=== PATIENT | female | born 1995 | race Two or more races ===

== ENCOUNTER 2016-04-22 12:10 | Inpatient (IN) | payer MEDICAID ==
[~2016-04-22] VITALS: Ht 33 cm; Wt 0.5 kg
[2016-04-22] MEDS: LACTATED RINGER'S 1,000 ML IV SCH (17:01)
[2016-04-22] MEDS ORDERED: LACT. RINGERS/OXYTOCIN 20UNITS 1,000 ML IV SCH ×2 (17:01→20:03)
[2016-04-22] MEDS ORDERED: LIDOCAINE 2%HCL (LOCAL ANESTH.) INJ 20ML MDV IJ PRN (17:15)
[2016-04-22] MEDS ORDERED: NALBUPHINE HCL 10 MG/1ml INJECTION IV PRN (17:15)
[2016-04-22] MEDS ORDERED: PROMETHAZINE HCL 25 MG/ML 1ML IV PRN (17:15)
[2016-04-22 17:32] LABS: Basophils # (auto) 0 uL; Basophils % (auto) 0.2 % (0.0-2.0); Eosinophils # (auto) 0.1 uL; Eosinophils % (auto) 0.5 % (0.0-7.0); Hematocrit 36.9 % (36.0-46.0); Hemoglobin 12.1 g/dL (12.2-16.2); Lymphocytes # (auto) 2.4 uL; Lymphocytes % (auto) 20.3 % (10.0-50.0); Mean Corpuscular Hemoglobin 28.6 pg (28.0-32.0); Mean Corpuscular Hgb Conc. 32.7 g/dL (32.0-36.0); Mean Corpuscular Volume 87.5 fL (80.0-100.0); Mean Platelet Volume 7.5 fL (7.4-10.4); Monocytes # (auto) 0.5 uL; Monocytes % (auto) 4.6 % (0.0-12.0); Neutrophils # (auto) 8.9 uL; Neutrophils % (auto) 74.4 % (37.0-80.0); Platelet Count (auto) 373 10^3/uL (140-450); Red Cell Distribution Width 14.9 % (11.6-16.0); White Blood Cell 11.9 10^3/uL (4.4-10.8)
[2016-04-22 17:46] LABS: INR 0.96 (0.9-1.15); Partial Thromboplastin Time 28.8 sec (22.64-33.71); Prothrombin Time 9.9 sec (9.37-12.3)
[2016-04-22 17:49] LABS: Albumin 2.9 g/dL (3.4-5.0); BUN/Creatinine Ratio 22.7; Calcium 9.2 mg/dL (8.5-10.1); Potassium 3.8 mmol/L (3.5-5.1)
[2016-04-22 17:52] LABS: Bilirubin, Total 0.3 mg/dL (0.2-1.0); Total Protein 7.5 g/dL (6.4-8.2)
[2016-04-22 18:41] LABS: Urine Bilirubin Negative (Negative); Urine Color Yellow (Yellow); Urine Glucose Normal (Normal); Urine Nitrite Negative (Negative); Urine RBC 5 /hpf (0 - 4); Urine Squamous Epithelial Cell FEW /hpf (<5); Urine Urobilinogen Normal (Negative)
[2016-04-22 18:42] LABS: Urine Blood 1+ /uL (Negative); Urine Ketone 2+ (Negative)
[2016-04-22] MEDS ORDERED: ePHEDrine SULFATE 50 MG/ML AMP ONE (19:57)
[2016-04-22] MEDS ORDERED: fentaNYL CITRATE 100 MCG/2 ML VL ONE (19:57)
[2016-04-22] MEDS ORDERED: LIDOCAINE HCL 2 %PF INJ 10ML AMP IJ ONE ×2 (19:58→20:15)
[2016-04-22] MEDS ORDERED: fentaNYL W ROPIVACAINE 150 ML EPI ONE (19:58)
[2016-04-22] MEDS ORDERED: fentaNYL CITRATE 100 MCG/2 ML VL IV ONE ×2 (20:15→21:15)
[2016-04-22] MEDS ORDERED: TERBUTALINE SULFATE 1 MG/ML 1ML VIAL SC ONE (20:15)
[2016-04-22] MEDS ORDERED: NALOXONE HCL 0.4 MG/ML VIAL IV ONE ×2 (20:15→21:15)
[2016-04-22] MEDS ORDERED: fentaNYL W ROPIVACAINE 150 ML EPI SCH ×2 (20:15→21:15)
[2016-04-22] MEDS ORDERED: ePHEDrine SULFATE 50 MG/ML AMP IV ONE ×2 (20:15→21:15)
[2016-04-22] MEDS ORDERED: SODIUM CHLORIDE 0.9% 500 ML IV PRN (21:02)
[2016-04-23] VITALS (11 sets, daily range): BP systolic 91–113; BP diastolic 52–79
[2016-04-23] MEDS: LACTATED RINGER'S 1,000 ML IV SCH (01:01)
[2016-04-23] MEDS ORDERED: WITCH HAZEL-GLYCERIN PAD TOP ONE (05:20)
[2016-04-23] MEDS ORDERED: PHISODERM TOP SOLN 240ML BTL TOP ONE (05:20)
[2016-04-23] MEDS ORDERED: DERMOPLAST 60ML BOTTLE TOP ONE (05:20)
[2016-04-23] MEDS ORDERED: LACT. RINGERS/OXYTOCIN 20UNITS 1,000 ML IV ONE (05:20)
[2016-04-23] MEDS ORDERED: METHYLERGONOVINE MALEATE 0.2 MG/ML AMP IM ONE (05:21)
[2016-04-23] MEDS: ceFAZolin 1GM/50ML D5W 50 ML IV SCH ×3 (09:39→22:00)
[2016-04-23] MEDS ORDERED: fentaNYL CITRATE 100 MCG/2 ML VL ONE (12:38)
[2016-04-23] MEDS ORDERED: MORPHINE SULF(PF) 0.5MG/ML 10ML VIAL ONE (12:39)
[2016-04-23] MEDS ORDERED: OXYTOCIN 10 UNIT/ML 10ML VIAL ONE (12:41)
[2016-04-23] MEDS ORDERED: ONDANSETRON HCL 4 MG/2 ML VIAL ONE (12:42)
[2016-04-23] MEDS ORDERED: MORPHINE SULF INJ 2 MG/ML SYRINGE 1ML IV PRN (13:45)
[2016-04-23] MEDS ORDERED: ONDANSETRON HCL 4 MG/2 ML VIAL IV PRN ×2 (13:45→14:00)
[2016-04-23] MEDS ORDERED: KETOROLAC TROMETH 30 MG/ML 1ML VIAL IV PRN (13:45)
[2016-04-23] MEDS ORDERED: DEXAMETHASONE SOD PHOS 10MG/1ML VIAL INJ IV PRN (14:00)
[2016-04-23] MEDS ORDERED: ONDANSETRON HCL 4 MG/2 ML VIAL IV ONE (14:00)
[2016-04-23] MEDS ORDERED: HYDROmorphone HCL 2 MG/ML VL IV PRN ×2 (14:00)
[2016-04-23] MEDS ORDERED: diphenhdrAMINE HCL 50 MG/1 ML VL IV PRN (14:00)
[2016-04-23] MEDS ORDERED: NALOXONE HCL 0.4 MG/ML VIAL IV PRN ×2 (14:00)
[2016-04-23] MEDS: HYDROmorphone HCL 2 MG/ML VL IV PRN ×2 (16:29→21:32)
[2016-04-23] MEDS: LACT. RINGERS/OXYTOCIN 20UNITS 1,000 ML IV SCH ×2 (16:34→20:25)
[2016-04-23] MEDS: KETOROLAC TROMETH 30 MG/ML 1ML VIAL IV PRN (21:11)
[2016-04-23 21:25] LABS: Basophils # (auto) 0.1 uL; Basophils % (auto) 0.3 % (0.0-2.0); Eosinophils # (auto) 0 uL; Hematocrit 32.8 % (36.0-46.0); Hemoglobin 10.8 g/dL (12.2-16.2); Lymphocytes # (auto) 2.2 uL; Lymphocytes % (auto) 12.1 % (10.0-50.0); Mean Corpuscular Hemoglobin 28.7 pg (28.0-32.0); Mean Corpuscular Hgb Conc. 32.9 g/dL (32.0-36.0); Mean Corpuscular Volume 87.1 fL (80.0-100.0); Mean Platelet Volume 7.6 fL (7.4-10.4); Monocytes # (auto) 0.8 uL; Monocytes % (auto) 4.2 % (0.0-12.0); Neutrophils # (auto) 15.3 uL; Neutrophils % (auto) 83.4 % (37.0-80.0); Platelet Count (auto) 336 10^3/uL (140-450); Red Cell Distribution Width 14.8 % (11.6-16.0); White Blood Cell 18.3 10^3/uL (4.4-10.8)
[2016-04-24] VITALS (8 sets, daily range): BP systolic 93–110; BP diastolic 54–73
[2016-04-24] MEDS: LACTATED RINGER'S 1,000 ML IV SCH ×2 (00:12→09:01)
[2016-04-24] MEDS: HYDROmorphone HCL 2 MG/ML VL IV PRN (02:20)
[2016-04-24] MEDS: KETOROLAC TROMETH 30 MG/ML 1ML VIAL IV PRN ×2 (05:35→05:40)
[2016-04-24] MEDS: ceFAZolin 1GM/50ML D5W 50 ML IV SCH ×4 (05:35→21:49)
[2016-04-24] MEDS: LACT. RINGERS/OXYTOCIN 20UNITS 1,000 ML IV SCH ×2 (06:30→09:45)
[2016-04-24 07:35] LABS: Basophils # (auto) 0.1 uL; Basophils % (auto) 0.4 % (0.0-2.0); Eosinophils # (auto) 0 uL; Eosinophils % (auto) 0.2 % (0.0-7.0); Hematocrit 30.2 % (36.0-46.0); Hemoglobin 9.9 g/dL (12.2-16.2); Mean Corpuscular Hemoglobin 28.8 pg (28.0-32.0); Mean Corpuscular Hgb Conc. 32.8 g/dL (32.0-36.0); Mean Platelet Volume 7.7 fL (7.4-10.4); Monocytes # (auto) 0.7 uL; Monocytes % (auto) 5.1 % (0.0-12.0); Neutrophils # (auto) 11.6 uL; Neutrophils % (auto) 80.3 % (37.0-80.0); Platelet Count (auto) 290 10^3/uL (140-450); White Blood Cell 14.4 10^3/uL (4.4-10.8)
[2016-04-24] MEDS ORDERED: PRENCAP61 PO (07:58)
[2016-04-24] MEDS: HYDROcodone-ACET 5/325MG TAB PO PRN ×2 (09:30→16:32)
[2016-04-24] MEDS: FERROUS SULFATE 325 MG TAB PO SCH ×2 (09:30→21:49)
[2016-04-24] MEDS: DOCUSATE SOD 100 MG CAP PO SCH ×2 (09:30→21:49)
[2016-04-24] MEDS ORDERED: BISACODYL 10 MG RECT SUPP PR ONE (11:30)
[2016-04-24] MEDS: SIMETHICONE 80 MG CHEWABLE TABLET PO SCH ×3 (11:45→21:49)
[2016-04-24] MEDS: IBUPROFEN 800 MG TAB PO PRN (18:32)
[2016-04-25] MEDS: HYDROcodone-ACET 5/325MG TAB PO PRN ×5 (00:18→21:55)
[2016-04-25 03:10] VITALS: BP 99/65
[2016-04-25] MEDS: SIMETHICONE 80 MG CHEWABLE TABLET PO SCH ×3 (05:48→19:40)
[2016-04-25] MEDS: IBUPROFEN 800 MG TAB PO PRN ×2 (05:48→19:40)
[2016-04-25] MEDS: ceFAZolin 1GM/50ML D5W 50 ML IV SCH ×2 (05:48→14:00)
[2016-04-25 08:01] VITALS: BP 103/73
[2016-04-25] MEDS: FERROUS SULFATE 325 MG TAB PO SCH ×2 (09:32→21:55)
[2016-04-25] MEDS: DOCUSATE SOD 100 MG CAP PO SCH ×2 (09:32→21:55)
[2016-04-25 12:10] VITALS: BP 120/67
[2016-04-25 16:10] VITALS: BP 110/72
[2016-04-25 19:30] VITALS: BP 111/71
[2016-04-25 23:00] VITALS: BP 106/71
[2016-04-26 03:30] VITALS: BP 114/65
[2016-04-26] MEDS: HYDROcodone-ACET 5/325MG TAB PO PRN ×2 (03:35→07:12)
[2016-04-26] MEDS: IBUPROFEN 800 MG TAB PO PRN (05:49)
[2016-04-26] MEDS: SIMETHICONE 80 MG CHEWABLE TABLET PO SCH (05:49)
[2016-04-26 07:29] VITALS: BP 106/68
[2016-04-26] MEDS ORDERED: INFLUENZA QUAD 2016-2017 0.5 ML SYRG IM ONE (09:30)
[2016-04-26] MEDS ORDERED: TETANUS-DIPTH-ACEL PERTUSSIS 0.5ML SYRG IM ONE (09:30)
[2016-04-26] MEDS: DOCUSATE SOD 100 MG CAP PO SCH (09:53)
[2016-04-26] MEDS: FERROUS SULFATE 325 MG TAB PO SCH (09:53)
== END 2016-04-26 10:20 | disposition home or self-care (01) | DRG 540 ==
LOC: LDRP 12:10 → OBSVTOIN 12:10 → LDRP 17:05
PROVIDERS: ADMIT Specialist; ATTEND Specialist
PROC: 3E0S3CZ (ICD-10-PCS; 2016-04-22)
PROC: 00HU33Z Insertion of Infusion Device into Spinal Canal, Percutaneous Approach (ICD-10-PCS; 2016-04-22)
PROC: 10D00Z1 Extraction of Products of Conception, Low, Open Approach (ICD-10-PCS; principal; 2016-04-23 12:42)
DX: O76 Abnormality in fetal heart rate and rhythm complicating labor and delivery (principal); O48.0 Post-term pregnancy; O69.1XX0 Labor and delivery complicated by cord around neck, with compression, not applicable or unspecified; O62.2 Other uterine inertia; Z37.0 Single live birth; Z3A.40 40 weeks gestation of pregnancy; Z98.890 Other specified postprocedural states; Z23 Encounter for immunization
CPT/HCPCS: 36415; 51703; 59025; 62282; 76818; 80053; 81001; 81002; 85025; 85610; 85730; 86850; 86900; 86901; 90715; 94762; 96361; 96365; 96366; 96372; 96374; J0690; J1885; J2405; J2590; J3010

== ENCOUNTER 2016-08-02 10:28 | Emergency (ER) | payer MEDICAID ==
[~2016-08-02 10:28] MED LIST: PRENCAP61 PO
[2016-08-02 10:32] VITALS: BP 117/84
[2016-08-02] MEDS ORDERED: SODIUM CHLORIDE 0.9% 1,000 ML IVB ONE (10:42)
[2016-08-02] MEDS ORDERED: PANTOPRAZOLE SODIUM 40 MG/10 ML VIAL IV ONE (10:45)
[2016-08-02] MEDS ORDERED: HYDROmorphone HCL 2 MG/ML VL IV ONE (10:45)
[2016-08-02] MEDS ORDERED: ONDANSETRON HCL 4 MG/2 ML VIAL IV ONE (10:45)
[2016-08-02 11:03] LABS: Basophils # (auto) 0 uL; Basophils % (auto) 0.4 % (0.0-2.0); Eosinophils # (auto) 0.3 uL; Eosinophils % (auto) 3.6 % (0.0-7.0); Hematocrit 41.6 % (36.0-46.0); Hemoglobin 14.1 g/dL (12.2-16.2); Lymphocytes # (auto) 2.2 uL; Lymphocytes % (auto) 25.1 % (10.0-50.0); Mean Corpuscular Hemoglobin 28.6 pg (28.0-32.0); Mean Corpuscular Hgb Conc. 33.8 g/dL (32.0-36.0); Mean Corpuscular Volume 84.6 fL (80.0-100.0); Mean Platelet Volume 7.9 fL (7.4-10.4); Monocytes # (auto) 0.6 uL; Monocytes % (auto) 6.4 % (0.0-12.0); Neutrophils # (auto) 5.7 uL; Neutrophils % (auto) 64.5 % (37.0-80.0); Platelet Count (auto) 378 10^3/uL (140-450); Red Cell Distribution Width 14.5 % (11.6-16.0); White Blood Cell 8.8 10^3/uL (4.4-10.8)
[2016-08-02 11:16] LABS: Urine Bilirubin Negative (Negative); Urine Color Yellow (Yellow); Urine Glucose Normal (Normal); Urine Ketone Negative (Negative); Urine Mucus FEW (None Seen); Urine Nitrite Negative (Negative); Urine RBC 5 /hpf (0 - 4); Urine Squamous Epithelial Cell MOD /hpf (<5); Urine Urobilinogen Normal (Negative); Urine pH 5.5 (5.0-8.0)
[2016-08-02 11:18] LABS: Urine Blood 3+ /uL (Negative)
[2016-08-02 11:27] LABS: Bilirubin, Total 0.3 mg/dL (0.2-1.0); Calcium 9.1 mg/dL (8.5-10.1); Potassium 4.2 mmol/L (3.5-5.1); Total Protein 8.8 g/dL (6.4-8.2)
[2016-08-02] MEDS ORDERED: cefTRIAXone 1GM/50ML D5W 50 ML IV ONE (12:15)
[2016-08-02] MEDS ORDERED: HYDROcodone-ACET 5/325MG TAB PO ONE (13:30)
== END 2016-08-02 12:30 | disposition home or self-care (01) ==
LOC: ER 10:32
DX: N39.0 Urinary tract infection, site not specified (principal); F17.210 Nicotine dependence, cigarettes, uncomplicated
CPT/HCPCS: 36415; 76705; 80053; 81001; 82150; 83690; 84702; 85025; 94761; 96361; 96365; 96375; 99285; C9113; J0696; J1170; J2405; J7030

== ENCOUNTER 2017-02-26 10:48 | Emergency (ER) | payer MEDICAID ==
[~2017-02-26] VITALS: Ht 154.9 cm; Wt 87.5 kg
[2017-02-26 10:55] VITALS: BP 121/72
[2017-02-26 12:16] LABS: Basophils # (auto) 0 uL; Basophils % (auto) 0.2 % (0.0-2.0); Eosinophils # (auto) 0.2 uL; Eosinophils % (auto) 1.5 % (0.0-7.0); Hematocrit 38.5 % (36.0-46.0); Hemoglobin 13.2 g/dL (12.2-16.2); Lymphocytes # (auto) 2.4 uL; Mean Corpuscular Hemoglobin 29.9 pg (28.0-32.0); Mean Corpuscular Hgb Conc. 34.4 g/dL (32.0-36.0); Mean Corpuscular Volume 87.1 fL (80.0-100.0); Monocytes # (auto) 0.5 uL; Monocytes % (auto) 4.9 % (0.0-12.0); Neutrophils # (auto) 7.4 uL; Neutrophils % (auto) 70.4 % (37.0-80.0); Platelet Count (auto) 350 10^3/uL (140-450); Red Blood Cells 4.42 10^6/uL (4.0-5.20); Red Cell Distribution Width 13.1 % (11.8-14.3); White Blood Cell 10.5 10^3/uL (4.4-10.8)
[2017-02-26 12:40] LABS: Alanine Aminotransferase 50 U/L (13-56); Albumin 3.6 g/dL (3.4-5.0); Alkaline Phosphatase 82 U/L (45-117); Anion Gap 12 (5-15); Aspartate Aminotransferase 49 U/L (15-37); BUN/Creatinine Ratio 11.4; Bilirubin, Total 0.5 mg/dL (0.2-1.0); Blood Urea Nitrogen 5 mg/dL (7-18); Carbon Dioxide 23 mmol/L (21-32); Chloride 102 mmol/L (98-107); GFR African American 228 mL/min; GFR Non-African American 188 mL/min; Glucose 99 mg/dL (74-106); Magnesium 2.2 mg/dL (1.6-2.6); Potassium 3.9 mmol/L (3.5-5.1); Sodium 137 mmol/L (136-145); Total Protein 8.2 g/dL (6.4-8.2)
== END 2017-02-26 13:50 | disposition left against medical advice (07) ==
LOC: ER 10:48
DX: O26.891 Other specified pregnancy related conditions, first trimester (principal); R42 Dizziness and giddiness; R11.0 Nausea; Z3A.11 11 weeks gestation of pregnancy
CPT/HCPCS: 36415; 80053; 82962; 83735; 84484; 85025; 93005

== ENCOUNTER 2017-05-02 06:17 | Emergency (ER) | payer MEDICAID | END 2017-05-02 06:58 | disposition left against medical advice (07) | LOC: ER 06:22 | DX: R51 Headache (principal); R09.81 Nasal congestion; Z53.21 Procedure and treatment not carried out due to patient leaving prior to being seen by health care provider ==

== ENCOUNTER 2017-09-07 22:55 | Observation (INO) | payer MEDICAID ==
[2017-09-07] MEDS ORDERED: LACTATED RINGER'S 1,000 ML IV ONE (23:36)
[2017-09-07 23:40] LABS: Urine Bacteria MOD /hpf (None Seen); Urine Blood 3+ /uL (Negative); Urine Specific Gravity 1.009 (1.001-1.035); Urine WBC 74 /hpf (0 - 5)
[2017-09-07] MEDS ORDERED: TERBUTALINE SULFATE 1 MG/ML 1ML VIAL SC ONE (23:41)
[2017-09-07] MEDS ORDERED: TERBUTALINE SULFATE 1 MG/ML 1ML VIAL SC SCH (23:45)
[2017-09-07 23:52] LABS: Alcohol, Urine < 3.0 mg/dL (0-5); Amphetamine Screen, Urine NEGATIVE (NEGATIVE); Barbiturate Scree,Urine NEGATIVE (NEGATIVE); Benzodiazephine Screen, Urine NEGATIVE (NEGATIVE); Cannabinoid Screen, Urine NEGATIVE (NEGATIVE); Cocaine Screen, Urine NEGATIVE (NEGATIVE); Opiate Scree,Urine NEGATIVE (NEGATIVE); Phencyclidine Screen, Urine NEGATIVE (NEGATIVE)
[2017-09-08] MEDS ORDERED: ceFAZolin 1GM/100ML 200 ML IV ONE (00:06)
[2017-09-08] MEDS ORDERED: ceFAZolin 1GM 2 GM in D5W 5% 100 ML IV ONE (00:15)
[2017-09-08] MEDS ORDERED: TETRACAINE 1% INJ 2 ML VIAL IJ ONE (14:29)
[2017-09-08] MEDS ORDERED: CEPH250C PO (16:27)
== END 2017-09-08 00:55 | disposition home or self-care (01) | DRG 566 ==
LOC: LDRP 22:55
PROVIDERS: ADMIT Obstetrics & Gynecology; ATTEND Obstetrics & Gynecology
DX: O62.9 Abnormality of forces of labor, unspecified (principal); O46.90 Antepartum hemorrhage, unspecified, unspecified trimester; Z3A.00 Weeks of gestation of pregnancy not specified
CPT/HCPCS: 59025; 80307; 81001; 81002; 96365; 96366; 96372; G0378; J0690; J3105; J7060

== ENCOUNTER 2017-09-08 13:55 | Inpatient (IN) | payer MEDICAID ==
[~2017-09-08] VITALS: Ht 154.9 cm; Wt 95.3 kg
[2017-09-08] MEDS: ceFAZolin 1GM/100ML 50 ML IV SCH ×2 (08:45→12:11)
[2017-09-08] MEDS ORDERED: LACTATED RINGER'S 1,000 ML IV SCH ×2 (14:26→22:34)
[2017-09-08] MEDS ORDERED: fentaNYL CITRATE 100 MCG/2 ML VL ONE (14:52)
[2017-09-08] MEDS ORDERED: MORPHINE SULF(PF) 0.5MG/ML 10ML VIAL ONE (14:52)
[2017-09-08] MEDS ORDERED: MIDAZOLAM HCL 1MG/1ML-2 ML VIAL ONE (14:53)
[2017-09-08 14:56] LABS: Basophils # (auto) 0 uL; Basophils % (auto) 0.3 % (0.0-2.0); Eosinophils # (auto) 0 uL; Eosinophils % (auto) 0.5 % (0.0-7.0); Hematocrit 35.9 % (36.0-46.0); Hemoglobin 12.3 g/dL (12.2-16.2); Lymphocytes # (auto) 1.7 uL; Lymphocytes % (auto) 17.6 % (10.0-50.0); Mean Corpuscular Hemoglobin 28.8 pg (28.0-32.0); Mean Corpuscular Hgb Conc. 34.2 g/dL (32.0-36.0); Mean Corpuscular Volume 84.1 fL (80.0-100.0); Monocytes # (auto) 0.5 uL; Monocytes % (auto) 4.7 % (0.0-12.0); Neutrophils # (auto) 7.4 uL; Neutrophils % (auto) 76.9 % (37.0-80.0); Nucleated Red Blood Cells % 0.2 %; Platelet Count (auto) 277 10^3/uL (140-450); Red Blood Cells 4.26 10^6/uL (4.0-5.20); Red Cell Distribution Width 16.3 % (11.8-14.3); White Blood Cell 9.6 10^3/uL (4.4-10.8)
[2017-09-08 15:10] LABS: INR 0.89 (0.9-1.15); Prothrombin Time 9.7 sec (9.37-12.3)
[2017-09-08 15:15] LABS: Albumin 2.6 g/dL (3.4-5.0); BUN/Creatinine Ratio 19.6; Calcium 8.9 mg/dL (8.5-10.1); Potassium 3.7 mmol/L (3.5-5.1)
[2017-09-08 15:18] LABS: Bilirubin, Total 0.5 mg/dL (0.2-1.0); Total Protein 7.2 g/dL (6.4-8.2)
[2017-09-08] MEDS ORDERED: ceFAZolin 1GM VL ONE (15:39)
[2017-09-08] MEDS ORDERED: OXYTOCIN 10 UNIT/ML 10ML VIAL ONE (15:39)
[2017-09-08] MEDS ORDERED: PHENYLEPHRINE HCL 10 MG/ML VL ONE (15:40)
[2017-09-08 15:42] LABS: Alcohol, Urine < 3.0 mg/dL (0-5); Amphetamine Screen, Urine NEGATIVE (NEGATIVE); Barbiturate Scree,Urine NEGATIVE (NEGATIVE); Benzodiazephine Screen, Urine NEGATIVE (NEGATIVE); Cannabinoid Screen, Urine NEGATIVE (NEGATIVE); Cocaine Screen, Urine NEGATIVE (NEGATIVE); Opiate Scree,Urine NEGATIVE (NEGATIVE); Phencyclidine Screen, Urine NEGATIVE (NEGATIVE)
[2017-09-08 15:47] LABS: Urine Bacteria MOD /hpf (None Seen); Urine Blood 3+ /uL (Negative); Urine Mucus FEW (None Seen); Urine Specific Gravity 1.021 (1.001-1.035); Urine WBC 194 /hpf (0 - 5); Urine WBC Clumps PRESENT /hpf (None Seen)
[2017-09-08] MEDS ORDERED: ONDANSETRON HCL 4 MG/2 ML VIAL IV PRN ×2 (16:15→16:30)
[2017-09-08] MEDS ORDERED: LACT. RINGERS/OXYTOCIN 20UNITS 1,000 ML IV SCH (16:15)
[2017-09-08] MEDS ORDERED: CEPH250C PO (16:27)
[2017-09-08] MEDS ORDERED: MIDAZOLAM HCL 1MG/1ML-2 ML VIAL IV PRN (16:30)
[2017-09-08] MEDS ORDERED: NALBUPHINE HCL 10 MG/1ml INJECTION SUBCUT ONE (16:30)
[2017-09-08] MEDS ORDERED: LABETALOL HCL 5 MG/ML 4ML SYRINGE IV PRN (16:30)
[2017-09-08] MEDS ORDERED: ePHEDrine SULFATE 50 MG/ML AMP IV PRN (16:30)
[2017-09-08] MEDS ORDERED: NALOXONE HCL 0.4 MG/ML VIAL IV PRN (16:30)
[2017-09-08] MEDS ORDERED: HYDROmorphone HCL 2 MG/ML VL IV PRN (16:30)
[2017-09-08] MEDS ORDERED: diphenhdrAMINE HCL 50 MG/1 ML VL IV PRN (16:30)
[2017-09-08] MEDS ORDERED: KETOROLAC TROMETH 30 MG/ML 1ML VIAL IV PRN (16:30)
[2017-09-08] MEDS ORDERED: DEXAMETHASONE SOD PHOS 10MG/1ML VIAL INJ IV PRN (16:30)
[2017-09-08 17:40] VITALS: BP 107/78
[2017-09-08 19:00] VITALS: BP 109/79
[2017-09-08 21:00] VITALS: BP 102/64
[2017-09-08] MEDS: KETOROLAC TROMETH 30 MG/ML 1ML VIAL IV PRN (21:03)
[2017-09-08 21:14] LABS: Basophils # (auto) 0 uL; Basophils % (auto) 0.1 % (0.0-2.0); Eosinophils # (auto) 0 uL; Eosinophils % (auto) 0.3 % (0.0-7.0); Hematocrit 35.6 % (36.0-46.0); Lymphocytes # (auto) 2.3 uL; Mean Corpuscular Hemoglobin 28.7 pg (28.0-32.0); Mean Corpuscular Hgb Conc. 33.7 g/dL (32.0-36.0); Mean Corpuscular Volume 85.3 fL (80.0-100.0); Monocytes # (auto) 0.7 uL; Neutrophils # (auto) 10.7 uL; Neutrophils % (auto) 77.6 % (37.0-80.0); Nucleated Red Blood Cells % 0.1 %; Platelet Count (auto) 253 10^3/uL (140-450); Red Blood Cells 4.18 10^6/uL (4.0-5.20); Red Cell Distribution Width 16.4 % (11.8-14.3); White Blood Cell 13.8 10^3/uL (4.4-10.8)
[2017-09-08 22:05] VITALS: BP 102/64
[2017-09-08] MEDS: MORPHINE SULFATE 4 MG/ML SYR/VIAL IV PRN (22:48)
[2017-09-08 23:30] VITALS: BP 116/64
[2017-09-09] VITALS (9 sets, daily range): BP systolic 89–110; BP diastolic 52–69
[2017-09-09] MEDS: ceFAZolin 1GM/100ML 50 ML IV SCH ×2 (00:11→08:45)
[2017-09-09] MEDS: MORPHINE SULFATE 4 MG/ML SYR/VIAL IV PRN (03:31)
[2017-09-09] MEDS: KETOROLAC TROMETH 30 MG/ML 1ML VIAL IV PRN (05:35)
[2017-09-09 07:08] LABS: Basophils # (auto) 0 uL; Basophils % (auto) 0.1 % (0.0-2.0); Eosinophils # (auto) 0.1 uL; Eosinophils % (auto) 0.4 % (0.0-7.0); Hematocrit 30.4 % (36.0-46.0); Hemoglobin 10.1 g/dL (12.2-16.2); Lymphocytes % (auto) 15.3 % (10.0-50.0); Mean Corpuscular Hemoglobin 28.6 pg (28.0-32.0); Mean Corpuscular Hgb Conc. 33.3 g/dL (32.0-36.0); Mean Corpuscular Volume 85.9 fL (80.0-100.0); Monocytes # (auto) 0.7 uL; Monocytes % (auto) 5.4 % (0.0-12.0); Neutrophils # (auto) 10.1 uL; Neutrophils % (auto) 78.8 % (37.0-80.0); Nucleated Red Blood Cells % 0.1 %; Platelet Count (auto) 228 10^3/uL (140-450); Red Blood Cells 3.54 10^6/uL (4.0-5.20); Red Cell Distribution Width 16.4 % (11.8-14.3); White Blood Cell 12.8 10^3/uL (4.4-10.8)
[2017-09-09] MEDS ORDERED: MORPHINE SULF INJ 2 MG/ML SYRINGE 1ML ONE (07:58)
[2017-09-09] MEDS ORDERED: LACTATED RINGER'S 1,000 ML IV SCH (08:21)
[2017-09-09] MEDS ORDERED: BISACODYL 10 MG RECT SUPP PR PRN ×2 (08:30→11:15)
[2017-09-09] MEDS ORDERED: DOCUSATE SOD 100 MG CAP PO SCH (10:00)
[2017-09-09] MEDS ORDERED: HYDROcodone-ACET 5/325MG TAB PO PRN (11:15)
[2017-09-09] MEDS ORDERED: ceFAZolin 1GM/100ML 100 ML IV ONE ×2 (11:18→18:00)
[2017-09-09] MEDS: HYDROcodone-ACET 5/325MG TAB PO PRN ×3 (11:39→22:17)
[2017-09-09] MEDS: SIMETHICONE 80 MG CHEWABLE TABLET PO SCH ×3 (11:44→21:31)
[2017-09-09] MEDS ORDERED: SIMETHICONE 80 MG CHEWABLE TABLET PO SCH (12:00)
[2017-09-09] MEDS: IBUPROFEN 800 MG TAB PO PRN ×2 (13:35→21:37)
[2017-09-09] MEDS: DOCUSATE SOD 100 MG CAP PO SCH (21:31)
[2017-09-10 03:00] VITALS: BP 103/69
[2017-09-10] MEDS: HYDROcodone-ACET 5/325MG TAB PO PRN ×4 (03:38→20:03)
[2017-09-10] MEDS: SIMETHICONE 80 MG CHEWABLE TABLET PO SCH ×4 (05:45→22:02)
[2017-09-10] MEDS: IBUPROFEN 800 MG TAB PO PRN ×3 (05:45→23:00)
[2017-09-10 06:49] VITALS: BP 105/70
[2017-09-10] MEDS: DOCUSATE SOD 100 MG CAP PO SCH ×2 (10:00→22:02)
[2017-09-10] MEDS: DOCUSATE CALCIUM 240 MG CAP PO SCH (10:00)
[2017-09-10] MEDS ORDERED: MEASLES, MUMPS & RUBELLA VAC(MMRII) 0.5ML SC ONE (10:30)
[2017-09-10 11:00] VITALS: BP 100/65
[2017-09-10 15:13] VITALS: BP 100/65
[2017-09-10 19:30] VITALS: BP 108/77
[2017-09-10 22:45] VITALS: BP 124/73
[2017-09-11] MEDS: HYDROcodone-ACET 5/325MG TAB PO PRN ×2 (03:42→08:33)
[2017-09-11 03:56] VITALS: BP 105/64
[2017-09-11] MEDS: SIMETHICONE 80 MG CHEWABLE TABLET PO SCH (06:00)
[2017-09-11 06:56] VITALS: BP 108/69
[2017-09-11] MEDS: DOCUSATE SOD 100 MG CAP PO SCH (10:14)
[2017-09-11] MEDS: DOCUSATE CALCIUM 240 MG CAP PO SCH (10:14)
[2017-09-11 11:10] VITALS: BP 103/60
[2017-09-11 11:45] VITALS: BP 103/60
== END 2017-09-11 11:45 | disposition home or self-care (01) | DRG 540 ==
LOC: OBSVTOIN 13:55 → LDRP 13:55
PROVIDERS: ADMIT Obstetrics & Gynecology; ATTEND Obstetrics & Gynecology
PROC: 10D00Z1 Extraction of Products of Conception, Low, Open Approach (ICD-10-PCS; principal; 2017-09-08 15:59)
DX: O34.211 Maternal care for low transverse scar from previous cesarean delivery (principal); E66.9 Obesity, unspecified; O69.81X0 Labor and delivery complicated by cord around neck, without compression, not applicable or unspecified; Z37.0 Single live birth; Z3A.38 38 weeks gestation of pregnancy; O99.214 Obesity complicating childbirth; Z68.39 Body mass index [BMI] 39.0-39.9, adult
CPT/HCPCS: 36415; 51702; 59025; 80053; 80307; 81001; 81002; 85025; 85610; 85730; 86850; 86900; 86901; 90471; 96361; 96365; 96366; 96375; J0690; J1885; J2250; J2405; J2590

== ENCOUNTER 2018-08-07 12:54 | Emergency (ER) | payer MEDICAID ==
[~2018-08-07] VITALS: Ht 154.9 cm; Wt 89.8 kg
[2018-08-07 14:54] VITALS: BP 118/78
[2018-08-07 15:23] LABS: Basophils # (auto) 0 uL; Basophils % (auto) 0.3 % (0.0-2.0); Eosinophils # (auto) 0.2 uL; Eosinophils % (auto) 1.8 % (0.0-7.0); Hematocrit 42.7 % (36.0-46.0); Hemoglobin 14.2 g/dL (12.2-16.2); Lymphocytes # (auto) 4.2 uL; Lymphocytes % (auto) 30.6 % (10.0-50.0); Mean Corpuscular Hgb Conc. 33.3 g/dL (32.0-36.0); Monocytes # (auto) 0.7 uL; Monocytes % (auto) 5.1 % (0.0-12.0); Neutrophils # (auto) 8.6 uL; Neutrophils % (auto) 62.2 % (37.0-80.0); Platelet Count (auto) 274 10^3/uL (140-450); Red Blood Cells 4.91 10^6/uL (4.0-5.20); Red Cell Distribution Width 13.8 % (11.8-14.3); White Blood Cell 13.8 10^3/uL (4.4-10.8)
== END 2018-08-07 16:56 | disposition home or self-care (01) ==
LOC: ER 12:54
DX: R04.0 Epistaxis (principal); R42 Dizziness and giddiness; N39.0 Urinary tract infection, site not specified; F17.210 Nicotine dependence, cigarettes, uncomplicated
CPT/HCPCS: 36415; 81002; 81025; 85025; 93005

== ENCOUNTER 2018-11-19 05:55 | Inpatient (IN) | payer MEDICAID ==
[~2018-11-19] VITALS: Ht 154.9 cm; Wt 90.9 kg
[2018-11-19 06:48] LABS: Basophils # (auto) 0.1 uL; Basophils % (auto) 0.4 % (0.0-2.0); Eosinophils # (auto) 0.1 uL; Eosinophils % (auto) 0.6 % (0.0-7.0); Hematocrit 39.2 % (36.0-46.0); Lymphocytes # (auto) 2.4 uL; Lymphocytes % (auto) 16.5 % (10.0-50.0); Mean Corpuscular Hemoglobin 28.9 pg (28.0-32.0); Mean Corpuscular Hgb Conc. 33.2 g/dL (32.0-36.0); Monocytes # (auto) 0.5 uL; Monocytes % (auto) 3.4 % (0.0-12.0); Neutrophils # (auto) 11.5 uL; Neutrophils % (auto) 79.1 % (37.0-80.0); Nucleated Red Blood Cells % 0.1 %; Platelet Count (auto) 339 10^3/uL (140-450); Red Cell Distribution Width 13.5 % (11.8-14.3); White Blood Cell 14.5 10^3/uL (4.4-10.8)
[2018-11-19 07:04] LABS: Albumin 3.7 g/dL (3.4-5.0); BUN/Creatinine Ratio 14.3
[2018-11-19 07:06] LABS: Bilirubin, Total 0.7 mg/dL (0.2-1.0)
[2018-11-19] MEDS ORDERED: SODIUM CHLORIDE 0.9% 1,000 ML IV ONE (07:58)
[2018-11-19] MEDS ORDERED: SODIUM CHLORIDE 0.9% 500 ML IVB ONE (07:58)
[2018-11-19 09:15] LABS: Urine WBC None Seen /hpf (0 - 5)
[2018-11-19 09:28] LABS: Urine Bacteria NONE SEEN /hpf (None Seen); Urine Blood Negative /uL (Negative); Urine Mucus FEW (None Seen); Urine Specific Gravity 1.014 (1.001-1.035)
[2018-11-19] MEDS ORDERED: MORPHINE SULFATE 4 MG/ML SYR/VIAL IV ONE (09:45)
[2018-11-19] MEDS ORDERED: PROMETHAZINE HCL 25 MG/ML 1ML IV PRN (09:45)
[2018-11-19] MEDS ORDERED: ONDANSETRON HCL 4 MG/2 ML VIAL IV PRN (12:15)
[2018-11-19] MEDS ORDERED: NITROGLYCERIN 0.4 MG SL TAB SL PRN (12:15)
[2018-11-19] MEDS ORDERED: DOCUSATE SOD 100 MG CAP PO PRN (12:15)
[2018-11-19] MEDS ORDERED: ACETAMINOPHEN 500 MG TAB PO PRN (12:15)
[2018-11-19] MEDS ORDERED: MORPHINE SULF INJ 2 MG/ML SYRINGE 1ML IV PRN (12:15)
[2018-11-19] MEDS: SODIUM CHLORIDE 0.9% 1,000 ML IV SCH ×2 (12:26→21:57)
[2018-11-19 12:42] LABS: Alcohol, Urine < 3.0 mg/dL (0-5); Amphetamine Screen, Urine NEGATIVE (NEGATIVE); Barbiturate Scree,Urine NEGATIVE (NEGATIVE); Benzodiazephine Screen, Urine NEGATIVE (NEGATIVE); Cannabinoid Screen, Urine POSITIVE (NEGATIVE); Cocaine Screen, Urine NEGATIVE (NEGATIVE); Opiate Scree,Urine NEGATIVE (NEGATIVE); Phencyclidine Screen, Urine NEGATIVE (NEGATIVE)
[2018-11-19] MEDS: MORPHINE SULF INJ 2 MG/ML SYRINGE 1ML IV PRN ×2 (12:43→19:58)
[2018-11-19 14:03] VITALS: BP 117/72
--- NOTE | 2018-11-19 14:07 | NUR ---
Telemetry admit from [facility] admitted to Telemetry unit after SBAR received. Patient oriented to primary RN Destiney , unit, room, bed, and unit policies regarding patient care and visiting hours. Patient now on continuous telemetry monitoring, tele box # [id number] and telemetry reading on arrival to unit is SR HR 86. Patient encouraged to call if they need something. All questions and concerns addressed, patient verbalized understanding. Signed: 11/19/18 at 1452 by DEVAUGHN SIMPSON <Co-Signature Required> Co-Signed: 11/19/18 at 1452 by Destiney Nova RN RN
--- NOTE | 2018-11-19 14:34 | NUR ---
PT TAKEN OFF UNIT VIA WHEEL CHAIR FOR ULTRA SOUND WILL MONITOR FOR RETURN Signed: 11/19/18 at 1454 by DEVAUGHN SIMPSON SN <Co-Signature Required> Co-Signed: 11/19/18 at 1454 by Destiney Nova RN RN
[2018-11-19] MEDS: HYDROcodone-ACET 5/325MG TAB PO PRN ×2 (16:02→21:56)
--- NOTE | 2018-11-19 16:48 | NUR ---
PAGED Patient asking about eating and drinking. Educted on orders and risks. Unable to contact Dr Herrera. David Zarate paged, orders to keep NPO until [place] results finalized and clearance of Dr Herrera.
[2018-11-19 17:00] VITALS: BP 99/55
[2018-11-19 22:00] VITALS: BP 110/75
--- NOTE | 2018-11-19 23:54 | NUR ---
Orders from Dr. Sharon Herrera called at approximately 2340hrs. He called to check on the patient, I explained she was still having a lot of pain but no other symptoms. He ordered to get consent for a Diagnostic Laparoscopy with possible Salpingectomy and Laparotomy. He also ordered a PT/PTT and a crossmatch for 2 units PRBCs which are to be on hold. Last, he stated the patient can eat some food now but to be NPO after midnight for possible surgery in the morning. Orders placed, will continue to monitor.
[2018-11-20] VITALS (7 sets, daily range): BP systolic 98–126; BP diastolic 53–76
[2018-11-20] MEDS: MORPHINE SULF INJ 2 MG/ML SYRINGE 1ML IV PRN ×3 (01:39→11:30)
[2018-11-20] MEDS: SODIUM CHLORIDE 0.9% 1,000 ML IV SCH ×3 (05:36→23:46)
[2018-11-20 06:50] LABS: Basophils # (auto) 0 uL; Basophils % (auto) 0.4 % (0.0-2.0); Eosinophils # (auto) 0.2 uL; Eosinophils % (auto) 2.4 % (0.0-7.0); Hematocrit 34.6 % (36.0-46.0); Hemoglobin 11.5 g/dL (12.2-16.2); Lymphocytes # (auto) 2.6 uL; Mean Corpuscular Hemoglobin 29.1 pg (28.0-32.0); Mean Corpuscular Hgb Conc. 33.3 g/dL (32.0-36.0); Mean Corpuscular Volume 87.2 fL (80.0-100.0); Monocytes # (auto) 0.4 uL; Monocytes % (auto) 5.1 % (0.0-12.0); Neutrophils # (auto) 5.2 uL; Neutrophils % (auto) 61.1 % (37.0-80.0); Nucleated Red Blood Cells % 0.1 %; Platelet Count (auto) 262 10^3/uL (140-450); Red Blood Cells 3.97 10^6/uL (4.0-5.20); Red Cell Distribution Width 13.5 % (11.8-14.3); White Blood Cell 8.5 10^3/uL (4.4-10.8)
[2018-11-20 07:11] LABS: INR 0.98 (0.9-1.15); Partial Thromboplastin Time 27.9 sec (23.64-32.05)
[2018-11-20 07:13] LABS: Potassium 3.5 mmol/L (3.5-5.1)
[2018-11-20 07:17] LABS: BUN/Creatinine Ratio 10.9
--- NOTE | 2018-11-20 07:45 | NUR ---
Opening Shift Note Assumed care of patient, awake and alert. No S/S of distress/SOB. Patient complains of 10/10 abd pain and asking for pain medications. Per NOC RN, Dr Herrera made aware of patients uncontrolled pain, patient will go for procedure today, continue current treatment. Instructed on POC and to call for assist PRN, will continue to monitor for changes Q1hr and PRN.
[2018-11-20] MEDS: HYDROcodone-ACET 5/325MG TAB PO PRN ×2 (08:03→21:53)
--- NOTE | 2018-11-20 08:50 | NUR ---
ROUNDS Patient resting in bed with eyes closed. No s/s distress or pain.
--- NOTE | 2018-11-20 09:00 | NUR ---
CALL PLACED TO PRE-OP, PER STAFF PATIENT NOT ON SCHEDULE AT THIS TIME BUT THEY WILL NOTIFY ME IF MD ADDS PATIENT.
--- NOTE | 2018-11-20 11:00 | NUR ---
MADE 3 ATTEMPTS TO CALL PRE-OP TO VERIFY SCHEDULE, NO ANSWER.
--- NOTE | 2018-11-20 11:01 | NUR ---
DR NO Attempted to leave message with Dr No unsuccessful. Cannot leave message due "mailbox full". protozoologist made aware.
--- NOTE | 2018-11-20 11:09 | NUR ---
Called L&D Call placed to L&D Doctor Sharon not there.
--- NOTE | 2018-11-20 11:18 | NUR ---
BOOM SUPERVISOR MADE AWARE OF SITUATION.
--- NOTE | 2018-11-20 11:40 | NUR ---
DR NO BEDSIDE Doctor Sharon rounding on patient with Primary RN. Doctor completed assessment and explained planned procedure to patient including risks and benefits. Patient verbalized understanding and agrees to follow through with surgery.
--- NOTE | 2018-11-20 12:50 | NUR ---
MENSTRUAL PERIOD Patient voided prior to transport to PACU. Patient states she started menstrual period. Supplies given. Will notify pre-op staff.
--- NOTE | 2018-11-20 12:55 | NUR ---
PACU Patient taken off unit via bed for scheduled procedure with two RN's. Patient's Mom Jade accompanied patient. Consents signed verified with Dr Herrera prior to patient transfer and placed in chart. IV line patent. Tele box removed, ALE notified. Vital signs WNL at time of transfer.
[2018-11-20] MEDS ORDERED: ceFAZolin 1GM/50ML 50 ML IV ONE ×2 (13:03→13:07)
[2018-11-20] MEDS ORDERED: GLYCOPYRROLATE 0.2 MG/ML 1ML VIAL IV ONE (13:19)
[2018-11-20] MEDS ORDERED: NEOSTIGMINE 1 MG/ML INJ (10mg/10ML VIAL) IV ONE (13:19)
[2018-11-20] MEDS ORDERED: fentaNYL CITRATE 100 MCG/2 ML VL ONE (13:24)
[2018-11-20] MEDS ORDERED: ROCURONIUM 10MG/ML 10ML VIAL IV ONE (13:25)
[2018-11-20] MEDS ORDERED: MIDAZOLAM HCL 1MG/1ML-2 ML VIAL ONE (13:25)
[2018-11-20] MEDS ORDERED: PROPOFOL 10 MG/ML 20 ML IV ONE (13:33)
[2018-11-20] MEDS ORDERED: ONDANSETRON HCL 4 MG/2 ML VIAL IV PRN (15:00)
[2018-11-20] MEDS ORDERED: ACETAMINOPHEN IV 1000 MG/100ML (10MG/ML) IV PRN (15:00)
[2018-11-20] MEDS ORDERED: ePHEDrine SULFATE 50 MG/ML AMP IV PRN (15:00)
[2018-11-20] MEDS ORDERED: hydrALAZINE HCL 20 MG/ML VL IV PRN (15:00)
[2018-11-20] MEDS ORDERED: ONDANSETRON HCL 4 MG/2 ML VIAL IV ONE (15:00)
[2018-11-20] MEDS ORDERED: HYDROmorphone HCL 2 MG/ML VL IV PRN (15:00)
[2018-11-20] MEDS ORDERED: HYDROmorphone HCL 2 MG/ML VL ONE ×2 (15:08→15:41)
[2018-11-20] MEDS: HYDROmorphone HCL 2 MG/ML VL IV PRN ×4 (15:45→16:15)
[2018-11-20 15:53] LABS: Hematocrit 32.2 % (36.0-46.0); Hemoglobin 10.7 g/dL (12.2-16.2)
--- NOTE | 2018-11-20 16:35 | NUR ---
RETURN TO UNIT Patient returned to unit after report received from from SUPERVISOR SPECIAL EFFECTS Maye. Heller catheter placed in OR, hung below patient. Dressing to lower abd clean, dry, intact, abd binder placed. V.S. stable. Patient on 2L N/C. Encouraged deep breathing. Bilateral lower ext SCD's placed with I.S. at bedside. Patient denies pain. IV fluids connected. Family at bedside with patient.
--- NOTE | 2018-11-20 19:25 | NUR ---
OPENING SHIFT NOTE Assumed care of patient, who is A&O x4. Currently on 2lpm N/C with no s/s of SOB or distress. Patient reports 10/10 pain at surgical site. Pain management options discussed with patient. ABD dressing is CDI. Abdominal binder is in place. SCDs in place on BLE. Patient is able to ambulate independently without the use of assistive devices at baseline, however she has not attempted ambulating post-op as of yet. Patient instructed to call for assistance when she would like to attempt ambulation. Patient verbalizes understanding POC discussed with patient who verbalizes understanding. Bed is in low locked position with side rails up x2. Call light is within reach. Will continue to monitor PRN.
[2018-11-20] MEDS: MORPHINE SULFATE 4 MG/ML SYR/VIAL IV PRN ×2 (19:46→23:52)
[2018-11-20 20:05] LABS: Basophils # (auto) 0 uL; Basophils % (auto) 0.1 % (0.0-2.0); Eosinophils # (auto) 0 uL; Eosinophils % (auto) 0.1 % (0.0-7.0); Hematocrit 33.8 % (36.0-46.0); Hemoglobin 11.2 g/dL (12.2-16.2); Lymphocytes # (auto) 1.3 uL; Lymphocytes % (auto) 9.5 % (10.0-50.0); Mean Corpuscular Hgb Conc. 33.3 g/dL (32.0-36.0); Mean Corpuscular Volume 87.3 fL (80.0-100.0); Monocytes # (auto) 0.5 uL; Monocytes % (auto) 3.8 % (0.0-12.0); Neutrophils # (auto) 11.9 uL; Neutrophils % (auto) 86.5 % (37.0-80.0); Platelet Count (auto) 271 10^3/uL (140-450); Red Blood Cells 3.87 10^6/uL (4.0-5.20); Red Cell Distribution Width 13.6 % (11.8-14.3); White Blood Cell 13.7 10^3/uL (4.4-10.8)
[2018-11-20] MEDS: ceFAZolin 1GM/50ML 50 ML IV SCH ×2 (20:17→21:54)
--- NOTE | 2018-11-20 20:58 | NUR ---
TARIQ OLIVEROS Left message with Dr. Rosenthal's exchange to report that patient is still having pain following Morphine 2mg and is requesting [place]. Awaiting call back. Will continue care.
--- NOTE | 2018-11-20 21:20 | NUR ---
NEW ORDER RECEIVED T/O received for [place] 5/325 Q6 hours PRN for moderate to severe pain. Will follow through with orders
--- NOTE | 2018-11-21 01:40 | NUR ---
LINEN CHANGE Menstrual blood pooled under patient while lying in bed and soiled linens. Patient cleaned and provided with sanitary napkin and mesh underwear. Full linen change performed.
--- NOTE | 2018-11-21 01:46 | NUR ---
AMBULATION Patient ambulated to the bathroom and back to bed with stand-by assistance. Tolerated well.
--- NOTE | 2018-11-21 02:09 | NUR ---
INCENTIVE SPIROMETER Education given on using incentive spirometer. Patient understands and is able to return demonstration.
[2018-11-21] MEDS: MORPHINE SULFATE 4 MG/ML SYR/VIAL IV PRN ×5 (04:08→23:37)
[2018-11-21 04:48] VITALS: BP 111/70
[2018-11-21 05:29] LABS: Basophils # (auto) 0 uL; Basophils % (auto) 0.1 % (0.0-2.0); Eosinophils # (auto) 0 uL; Eosinophils % (auto) 0.3 % (0.0-7.0); Hematocrit 33.3 % (36.0-46.0); Hemoglobin 11.3 g/dL (12.2-16.2); Lymphocytes # (auto) 1.5 uL; Lymphocytes % (auto) 13.3 % (10.0-50.0); Mean Corpuscular Hemoglobin 29.2 pg (28.0-32.0); Mean Corpuscular Hgb Conc. 33.8 g/dL (32.0-36.0); Mean Corpuscular Volume 86.4 fL (80.0-100.0); Monocytes # (auto) 0.5 uL; Monocytes % (auto) 4.7 % (0.0-12.0); Neutrophils # (auto) 9.5 uL; Neutrophils % (auto) 81.6 % (37.0-80.0); Platelet Count (auto) 294 10^3/uL (140-450); Red Blood Cells 3.86 10^6/uL (4.0-5.20); Red Cell Distribution Width 13.6 % (11.8-14.3); White Blood Cell 11.6 10^3/uL (4.4-10.8)
[2018-11-21] MEDS: ceFAZolin 1GM/50ML 50 ML IV SCH ×3 (06:00→21:14)
[2018-11-21] MEDS: HYDROcodone-ACET 5/325MG TAB PO PRN ×3 (06:43→21:15)
[2018-11-21] MEDS: SODIUM CHLORIDE 0.9% 1,000 ML IV SCH ×3 (08:23→22:57)
[2018-11-21 09:15] VITALS: BP 103/60
--- NOTE | 2018-11-21 10:44 | NUR ---
Damon catheter dc'd Order to discontinue damon catheter. Damon dc'd with clean technique following deflation of balloon. Patient tolerated well with no complaints of pain. Continue care. Patient urinated 50 mls clear, yellow urine. Will continue to monitor.
--- NOTE | 2018-11-21 12:22 | NUR ---
Nutrition Assessment Notes please see attached link for complete assessment Est. Needs ABW (70 kg): 8374-4143 kcal (20-23 kcal/kgBW), 70-77 gms pro (1.0-1.1 gms/kgBW). Will continue to monitor pertinent labs and reassess nutrient need prn Addendum: 11/21/18 at [address] Amended: Links added.
[2018-11-21 12:30] VITALS: BP 102/64
[2018-11-21] MEDS ORDERED: ACETAMINOPHEN 500 MG TAB PO PRN (15:00)
[2018-11-21 17:09] VITALS: BP 102/57
--- NOTE | 2018-11-21 19:35 | NUR ---
OPENING SHIFT NOTE RECEIVED REPORT FROM PAUL RN. PATIENT RESTING COMFORTABLY IN BED WITH VISITOR AT BEDSIDE. NO S/S OF DISTRESS OR SOB. NO PAIN NOTED OR REPORTED. PATIENT A/O X4, AMBULATORY. PATIENT S/P RIGHT OOPHORECTOMY ON 11/20, INCISION TO LOWER ABDOMEN IS CLEAN, DRY, AND INTACT. PATIENT UPDATED ON POC, VERBALIZED UNDERSTANDING. BED LOCKED IN LOW POSITION, CALL LIGHT WITHIN REACH. WILL CONTINUE TO MONITOR PATIENT Q1HR AND PRN.
[2018-11-21 22:00] VITALS: BP 109/70
[2018-11-22 05:00] VITALS: BP 115/76
[2018-11-22] MEDS: ceFAZolin 1GM/50ML 50 ML IV SCH ×2 (05:53→15:00)
[2018-11-22] MEDS: SODIUM CHLORIDE 0.9% 1,000 ML IV SCH (05:53)
[2018-11-22] MEDS: HYDROcodone-ACET 5/325MG TAB PO PRN ×2 (05:54→12:08)
[2018-11-22 06:39] LABS: Basophils # (auto) 0 uL; Basophils % (auto) 0.2 % (0.0-2.0); Eosinophils # (auto) 0.1 uL; Eosinophils % (auto) 1.6 % (0.0-7.0); Hematocrit 31.9 % (36.0-46.0); Hemoglobin 10.9 g/dL (12.2-16.2); Lymphocytes % (auto) 21.9 % (10.0-50.0); Mean Corpuscular Hemoglobin 29.7 pg (28.0-32.0); Mean Corpuscular Hgb Conc. 34.1 g/dL (32.0-36.0); Mean Corpuscular Volume 86.9 fL (80.0-100.0); Monocytes # (auto) 0.6 uL; Monocytes % (auto) 6.4 % (0.0-12.0); Neutrophils # (auto) 6.3 uL; Neutrophils % (auto) 69.9 % (37.0-80.0); Platelet Count (auto) 257 10^3/uL (140-450); Red Blood Cells 3.67 10^6/uL (4.0-5.20); Red Cell Distribution Width 13.7 % (11.8-14.3); White Blood Cell 9.1 10^3/uL (4.4-10.8)
[2018-11-22 08:00] VITALS: BP 115/62
[2018-11-22 09:00] VITALS: BP 115/62
[2018-11-22] MEDS ORDERED: HYDROcodone-ACET 5/325MG TAB PO PRN ×2 (09:45)
[2018-11-22] MEDS ORDERED: DOCUSATE SOD 100 MG CAP PO SCH (10:00)
[2018-11-22 13:00] VITALS: BP 101/55
[2018-11-22] MEDS ORDERED: ACETAMINOPHEN 500 MG TAB PO PRN (15:45)
[2018-11-22] MEDS ORDERED: MORPHINE SULFATE 4 MG/ML SYR/VIAL IV PRN (15:45)
--- NOTE | 2018-11-22 16:44 | NUR ---
APPOINTMENT WITH DR. NO CALLED AND MADE APPOINTMENT WITH DR. NO FOR DECEMBER 01, 2018 @ 0900. WILL PLACE IN DISCHARGE INSTRUCTIONS AND VERBALLY INFORM PATIENT.
[2018-11-22 17:18] VITALS: BP 113/62
--- NOTE | 2018-11-22 17:54 | NUR ---
Discharge instructions given as ordered. Encourage to follow up with PMD as instructed. All questions and concerns addressed. Patient verbalized understanding. Medication reconciliation form completed and copy given to patient. Home medications held in Pharmacy returned to patient, and needed vaccines given. IV removed with catheter intact, pressure dressing applied. Telemetry unit returned to ICU. Patient taken to vehicle via wheelchair with all personal belongings, accompanied by staff and family member. No distress noted at time of departure.
== END 2018-11-22 17:54 | disposition home or self-care (01) | DRG 513 ==
LOC: ER 05:57 → TELE 05:58 → TELE-WESTW 14:07
PROVIDERS: ADMIT Nurse Practitioner Acute Care; ATTEND Hospitalist
PROC: 0UB00ZZ Excision of Right Ovary, Open Approach (ICD-10-PCS; principal; 2018-11-19)
PROC: 0DNU0ZZ Release Omentum, Open Approach (ICD-10-PCS; 2018-11-19)
DX: N83.291 Other ovarian cyst, right side (principal); K66.1 Hemoperitoneum; E66.9 Obesity, unspecified; Z68.37 Body mass index [BMI] 37.0-37.9, adult; D72.829 Elevated white blood cell count, unspecified; R74.8 Abnormal levels of other serum enzymes; R73.9 Hyperglycemia, unspecified; N94.89 Other specified conditions associated with female genital organs and menstrual cycle; G89.29 Other chronic pain; N73.6 Female pelvic peritoneal adhesions (postinfective); Z53.31 Laparoscopic surgical procedure converted to open procedure; Z82.49 Family history of ischemic heart disease and other diseases of the circulatory system; Z83.3 Family history of diabetes mellitus; Z90.721 Acquired absence of ovaries, unilateral; Z98.891 History of uterine scar from previous surgery; Z79.899 Other long term (current) drug therapy; Z91.018 Allergy to other foods
CPT/HCPCS: 36415; 74176; 76856; 80048; 80053; 80307; 81001; 81025; 83690; 84702; 85014; 85018; 85025; 85610; 85730; 86850; 86900; 86901; 86920; 96361; 96374; G0378; J0131; J0690; J2250; J2405; J2704

== ENCOUNTER 2019-07-24 10:20 | Observation (INO) | payer MEDICAID | END 2019-07-24 11:15 | disposition home or self-care (01) | DRG 566 | LOC: LDRP 10:20 | PROVIDERS: ADMIT Obstetrics & Gynecology; ATTEND Obstetrics & Gynecology | DX: O23.592 Infection of other part of genital tract in pregnancy, second trimester (principal); O34.219 Maternal care for unspecified type scar from previous cesarean delivery; Z3A.22 22 weeks gestation of pregnancy | CPT/HCPCS: 59025; 81002; G0378 ==

== ENCOUNTER 2019-09-03 21:29 | Emergency (ER) | payer MEDICAID ==
[~2019-09-03] VITALS: Ht 154.9 cm; Wt 88.9 kg
[2019-09-03 21:38] VITALS: BP 104/67
== END 2019-09-03 22:29 | disposition home or self-care (01) ==
LOC: ER 21:29
DX: O26.892 Other specified pregnancy related conditions, second trimester (principal); S93.402A Sprain of unspecified ligament of left ankle, initial encounter; Z3A.28 28 weeks gestation of pregnancy; W01.0XXA Fall on same level from slipping, tripping and stumbling without subsequent striking against object, initial encounter; Y93.89 Activity, other specified; Y92.89 Other specified places as the place of occurrence of the external cause; Y99.8 Other external cause status

== ENCOUNTER 2019-11-06 12:06 | Observation (INO) | payer MEDICAID | END 2019-11-06 13:50 | disposition home or self-care (01) | DRG 566 | LOC: LDRP 12:06 | PROVIDERS: ADMIT Specialist; ATTEND Specialist | DX: O24.410 Gestational diabetes mellitus in pregnancy, diet controlled (principal); Z3A.37 37 weeks gestation of pregnancy | CPT/HCPCS: 59025; 76818; 81002; 82948; 82962; G0378 ==

== ENCOUNTER 2019-11-09 12:27 | Observation (INO) | payer MEDICAID | END 2019-11-09 13:45 | disposition home or self-care (01) | DRG 566 | LOC: LDRP 12:40 | PROVIDERS: ADMIT Specialist; ATTEND Specialist | DX: O24.410 Gestational diabetes mellitus in pregnancy, diet controlled (principal); Z3A.37 37 weeks gestation of pregnancy | CPT/HCPCS: 59025; 76818; 81002; 82948; 82962; G0378 ==

== ENCOUNTER 2019-11-13 09:57 | Observation (INO) | payer MEDICAID ==
[2019-11-13] MEDS ORDERED: PREN-96 PO (13:12)
== END 2019-11-13 13:25 | disposition home or self-care (01) | DRG 566 ==
LOC: LDRP 11:21
PROVIDERS: ADMIT Specialist; ATTEND Specialist
DX: O24.410 Gestational diabetes mellitus in pregnancy, diet controlled (principal); Z3A.38 38 weeks gestation of pregnancy
CPT/HCPCS: 59025; 76818; 81002; 82962; G0378

== ENCOUNTER 2019-11-16 13:34 | Observation (INO) | payer MEDICAID ==
[~2019-11-16 13:34] MED LIST changes: +PREN-96 PO; -PRENCAP61 PO
[2019-11-16] MEDS ORDERED: TERBUTALINE SULFATE 1 MG/ML 1ML VIAL SC ONE (15:00)
[2019-11-16] MEDS ORDERED: TERBUTALINE SULFATE 1 MG/ML 1ML VIAL SC PRN ×2 (15:30)
== END 2019-11-16 16:10 | disposition home or self-care (01) | DRG 566 ==
LOC: LDRP 13:34
PROVIDERS: ADMIT Specialist; ATTEND Specialist
DX: O24.410 Gestational diabetes mellitus in pregnancy, diet controlled (principal); Z3A.38 38 weeks gestation of pregnancy
CPT/HCPCS: 59025; 76818; 81002; 82962; 96372; G0378; J3105

== ENCOUNTER 2019-11-17 08:04 | Outpatient (CLI) | payer MEDICAID ==
--- NOTE | 2019-11-17 08:20 | NUR ---
Pre-op covid test completed, pt consented, education given.
== END 2019-11-17 09:21 | disposition home or self-care (01) ==
LOC: OB 08:04 → UNDODISOB 08:25 → OB 09:21 → EDSTATUS 11-30 08:14
PROVIDERS: ATTEND Specialist
DX: Z03.818 Encounter for observation for suspected exposure to other biological agents ruled out (principal); O24.419 Gestational diabetes mellitus in pregnancy, unspecified control; Z3A.38 38 weeks gestation of pregnancy
CPT/HCPCS: C9803; U0003; G0378

== ENCOUNTER 2019-11-17 14:13 | Observation (INO) | payer MEDICAID ==
[~2019-11-17] VITALS: Ht 154.9 cm; Wt 90.7 kg
[2019-11-18] MEDS ORDERED: NIFEdipine 10 MG CAP PO ONE (13:30)
== END 2019-11-18 14:08 | disposition home or self-care (01) | DRG 566 ==
LOC: LDRP 14:13 → UNDOADMOB 14:13 → LDRP 11-18 12:54
PROVIDERS: ADMIT Specialist; ATTEND Specialist
DX: O24.419 Gestational diabetes mellitus in pregnancy, unspecified control (principal); Z3A.38 38 weeks gestation of pregnancy
CPT/HCPCS: 59025; 81002; 82948; 82962; G0378

== ENCOUNTER 2019-11-18 23:10 | Inpatient (IN) | payer MEDICAID ==
[~2019-11-18] VITALS: Ht 154.9 cm; Wt 90.7 kg
[2019-11-18] MEDS ORDERED: ACETAMINOPHEN 325 MG TAB PO PRN (23:30)
[2019-11-18] MEDS ORDERED: ONDANSETRON HCL 4 MG/2 ML VIAL IV PRN (23:30)
[2019-11-18] MEDS ORDERED: ONDANSETRON HCL 4 MG/2 ML VIAL ONE (23:32)
[2019-11-19] VITALS (16 sets, daily range): BP systolic 95–124; BP diastolic 43–74
[2019-11-19] MEDS ORDERED: TERBUTALINE SULFATE 1 MG/ML 1ML VIAL SC ONE ×2 (00:12→00:15)
[2019-11-19] MEDS ORDERED: diphenhdrAMINE HCL 50 MG/1 ML VL IM ONE (00:45)
[2019-11-19] MEDS ORDERED: diphenhdrAMINE HCL 50 MG/1 ML VL ONE (00:50)
[2019-11-19 01:58] LABS: Basophils # (auto) 0 10 ^3/uL (0-0.2); Basophils % (auto) 0.2 % (0.0-2.0); Eosinophils # (auto) 0 10 ^3/uL (0-0.8); Eosinophils % (auto) 0.4 % (0.0-7.0); Hemoglobin 12.6 g/dL (12.2-16.2); Lymphocytes # (auto) 2.3 10 ^3/uL (0.4-5.4); Lymphocytes % (auto) 24.6 % (10.0-50.0); Mean Corpuscular Hemoglobin 28.5 pg (28.0-32.0); Mean Corpuscular Hgb Conc. 33.2 g/dL (32.0-36.0); Mean Corpuscular Volume 85.7 fL (80.0-100.0); Monocytes # (auto) 0.4 10 ^3/uL (0-1.3); Monocytes % (auto) 4.4 % (0.0-12.0); Neutrophils # (auto) 6.5 10 ^3/uL (1.6-8.6); Neutrophils % (auto) 70.4 % (37.0-80.0); Nucleated Red Blood Cells % 0.1 %; Platelet Count (auto) 286 10^3/uL (140-450); Red Blood Cells 4.44 10^6/uL (4.0-5.20); Red Cell Distribution Width 15.6 % (11.8-14.3); White Blood Cell 9.2 10^3/uL (4.4-10.8)
[2019-11-19 02:03] LABS: Urine Bacteria MANY /hpf (None Seen); Urine Blood Negative /uL (Negative); Urine Mucus FEW (None Seen); Urine Specific Gravity 1.009 (1.001-1.035); Urine WBC 4 /hpf (0 - 5)
[2019-11-19 02:16] LABS: Albumin 2.8 g/dL (3.4-5.0); BUN/Creatinine Ratio 11.5; Calcium 8.6 mg/dL (8.5-10.1); Potassium 3.3 mmol/L (3.5-5.1)
[2019-11-19 02:19] LABS: Bilirubin, Total 0.4 mg/dL (0.2-1.0); Total Protein 7.4 g/dL (6.4-8.2)
[2019-11-19 02:20] LABS: Alcohol, Urine < 3.0 mg/dL (0-10); Amphetamine Screen, Urine NEGATIVE (NEGATIVE); Barbiturate Scree,Urine NEGATIVE (NEGATIVE); Benzodiazephine Screen, Urine NEGATIVE (NEGATIVE); Cannabinoid Screen, Urine POSITIVE (NEGATIVE); Cocaine Screen, Urine NEGATIVE (NEGATIVE); Opiate Scree,Urine NEGATIVE (NEGATIVE); Phencyclidine Screen, Urine NEGATIVE (NEGATIVE)
[2019-11-19 02:24] LABS: INR 0.95 (0.9-1.15); Partial Thromboplastin Time 28.1 sec (23.64-32.05)
[2019-11-19] MEDS ORDERED: SODIUM CHLORIDE LOCK 10 ML ONE (09:00)
[2019-11-19] MEDS ORDERED: fentaNYL CITRATE 100 MCG/2 ML VL ONE (09:00)
[2019-11-19] MEDS ORDERED: oxyTOCIN 10 UNIT/ML 10ML VIAL ONE (09:00)
[2019-11-19] MEDS ORDERED: MORPHINE SULF(PF) 0.5MG/ML 10ML VIAL ONE (09:00)
[2019-11-19] MEDS ORDERED: ceFAZolin 1GM VL ONE (09:00)
[2019-11-19] MEDS ORDERED: MIDAZOLAM HCL 1MG/1ML-2 ML VIAL ONE (09:00)
[2019-11-19] MEDS ORDERED: EPINEPHrine HCL 1 MG/1 ML AMP ONE (09:00)
[2019-11-19] MEDS ORDERED: BUPIVACAINE/DEXTROSE MPF 0.75% 2 ML AMP IT ONE (09:00)
[2019-11-19] MEDS ORDERED: ACETAMINOPHEN IV 1000 MG/100ML (10MG/ML) IV PRN (11:15)
[2019-11-19] MEDS ORDERED: GUM (CHEWING) 1 GUM CHEW CHEW ONE (11:15)
[2019-11-19] MEDS ORDERED: NALOXONE HCL 0.4 MG/ML VIAL IV PRN (11:15)
[2019-11-19] MEDS ORDERED: diphenhdrAMINE HCL 50 MG/1 ML VL IV PRN (11:15)
[2019-11-19] MEDS ORDERED: ACCU-CHEK COMFORT CURVE STRIP VI ONE (11:15)
[2019-11-19] MEDS ORDERED: HYDROmorphone HCL 2 MG/ML VL IV PRN (11:15)
[2019-11-19] MEDS ORDERED: fentaNYL CITRATE 100 MCG/2 ML VL IV PRN (11:15)
[2019-11-19] MEDS ORDERED: METOCLOPRAMIDE HCL 5MG/ml INJ 2ml VIAL IV PRN (11:15)
[2019-11-19] MEDS ORDERED: MORPHINE SULFATE 4 MG/ML SYR/VIAL IV PRN (11:15)
[2019-11-19] MEDS ORDERED: ceFAZolin 1GM/50ML 50 ML IV SCH (11:15)
[2019-11-19] MEDS ORDERED: KETOROLAC TROMETH 30 MG/ML 1ML VIAL IV ONE (11:15)
[2019-11-19] MEDS ORDERED: ONDANSETRON HCL 4 MG/2 ML VIAL IV PRN (11:15)
[2019-11-19] MEDS: LACTATED RINGER'S 1,000 ML IV SCH (11:51)
--- NOTE | 2019-11-19 12:00 | NUR ---
Teaching: Reviewed information in [employer] booklet with patient. Discussed benefits of and risks associated with not . Discussed different positions, proper latch, feeding cues, and baby-led . Provided information of medication side effects related to . All questions and concerns addressed at this time. Patient verbalized understanding of information.
[2019-11-19] MEDS: HYDROmorphone HCL 2 MG/ML VL IV PRN (13:44)
[2019-11-19] MEDS: ceFAZolin 1GM/50ML 50 ML IV SCH (17:35)
[2019-11-19] MEDS: KETOROLAC TROMETH 30 MG/ML 1ML VIAL IV PRN (19:32)
[2019-11-19] MEDS ORDERED: ACETAMINOPHEN IV 1000 MG/100ML (10MG/ML) IV ONE (22:45)
--- NOTE | 2019-11-19 23:40 | NUR ---
Ambulation: Patient OOB with standby assistance by RN. Patient ambulated down rios to ER doors with steady gait. Bandage removed from incision, incision is clean dry intact and free from signs of infection. SCD's removed. Clean gown provided and bed linen changed. Patient ambulated back to bed with steady gait and no distress noted.
--- NOTE | 2019-11-20 | NUR ---
Bottle-feeding Education: Patient encouraged to breastfeed. Benefits of and the risk of providing formula to was discussed. Patient verbalized understanding of the benefits and is aware of risk and insists on bottle-feeding. Formula provided and instruction on formula preparation from the [employer] booklet reviewed with patient.
[2019-11-20] MEDS: LACTATED RINGER'S 1,000 ML IV SCH (01:38)
[2019-11-20] MEDS: ceFAZolin 1GM/50ML 50 ML IV SCH ×2 (01:48→09:05)
[2019-11-20] MEDS: KETOROLAC TROMETH 30 MG/ML 1ML VIAL IV PRN (01:49)
[2019-11-20 02:41] VITALS: BP 100/53
--- NOTE | 2019-11-20 04:45 | NUR ---
Damon catheter dc'd Order to discontinue damon catheter. Damon dc'd with clean technique following deflation of balloon. Patient tolerated well with no complaints of pain. Continue care. Signed: 11/20/19 at 0541 by DEVAUGHN ALBARRAN SN <Co-Signature Required> Co-Signed: 11/20/19 at 0541 by Supriya Mcfadden RN RN
[2019-11-20] MEDS: HYDROmorphone HCL 2 MG/ML VL IV PRN (05:05)
[2019-11-20 06:52] VITALS: BP 110/69
[2019-11-20 07:29] LABS: Basophils # (auto) 0 10 ^3/uL (0-0.2); Basophils % (auto) 0.2 % (0.0-2.0); Eosinophils # (auto) 0 10 ^3/uL (0-0.8); Eosinophils % (auto) 0.5 % (0.0-7.0); Hemoglobin 10.4 g/dL (12.2-16.2); Lymphocytes # (auto) 1.6 10 ^3/uL (0.4-5.4); Lymphocytes % (auto) 18.6 % (10.0-50.0); Mean Corpuscular Hgb Conc. 33.6 g/dL (32.0-36.0); Mean Corpuscular Volume 86.3 fL (80.0-100.0); Monocytes # (auto) 0.4 10 ^3/uL (0-1.3); Neutrophils # (auto) 6.4 10 ^3/uL (1.6-8.6); Neutrophils % (auto) 75.7 % (37.0-80.0); Platelet Count (auto) 220 10^3/uL (140-450); Red Blood Cells 3.59 10^6/uL (4.0-5.20); Red Cell Distribution Width 15.7 % (11.8-14.3); White Blood Cell 8.5 10^3/uL (4.4-10.8)
[2019-11-20] MEDS ORDERED: SIMETHICONE 80 MG CHEWABLE TABLET PO PRN (08:30)
[2019-11-20] MEDS ORDERED: HYDROcodone-ACET 5/325MG TAB PO PRN (08:30)
--- NOTE | 2019-11-20 09:00 | NUR ---
INFANT SKIN TO SKIN, BONDING WELL.
[2019-11-20] MEDS: DOCUSATE SOD 100 MG CAP PO SCH ×2 (09:05→22:08)
[2019-11-20] MEDS: HYDROcodone-ACET 5/325MG TAB PO PRN ×4 (09:05→22:08)
[2019-11-20 11:20] VITALS: BP 121/81
--- NOTE | 2019-11-20 14:20 | NUR ---
Sample Room Supervisor at bedside, talking to the pt in regards Social service consult.
--- NOTE | 2019-11-20 14:24 | NUR ---
Assessment Patient is a 24-year old female who is alert and oriented. Social Service consult regarding THC positive, Patient uses edibles. ANJEL Ayala informed me patient and mom both tested positive for THC. Patient stated she consume edibles during her whole . Patient then hesitated and said she only consume edibles 3 weeks prior to her giving due to nausea, lack of sleep and back pain. Baby father Russell was at bedside when speaking to patient. Patient resides with baby father Russell and will assistance with baby upon discharge. Patient has all supplies as well as car seat for baby and will be bottle fed/breastfed. Patient has medical insurance for herself and baby and will be following up with provider appt post discharge. Pt has transportation home upon discharge. Due to baby being positive for THC, CPS will be contact. Spoke to Michael with CPS. CPS case is [id number].
[2019-11-20 15:20] VITALS: BP 120/78
[2019-11-20 18:30] VITALS: BP 125/80
[2019-11-20] MEDS: IBUPROFEN 800 MG TAB PO PRN (18:37)
[2019-11-20 22:38] VITALS: BP 108/70
[2019-11-21] MEDS: IBUPROFEN 800 MG TAB PO PRN (02:41)
--- NOTE | 2019-11-21 02:41 | NUR ---
Pain medication: Patient continues to verbalize pain level at 6-8 on 1/10 scale. Patient verbalizes tolerable pain level is 6. Patient verbalizes that she feels that the pain medication is working and states that she has had similar pain with previous c/s. This RN discusses calling provider to see if there are any alternative medications that can be given, but patient verbalizes that she feels current medications are sufficient.
[2019-11-21 02:46] VITALS: BP 110/71
[2019-11-21] MEDS: HYDROcodone-ACET 5/325MG TAB PO PRN ×2 (04:07→10:46)
[2019-11-21 06:08] LABS: RPR Non Reactive (Non Reactive)
[2019-11-21 07:30] VITALS: BP 114/79
[2019-11-21] MEDS: DOCUSATE SOD 100 MG CAP PO SCH (10:46)
[2019-11-21 10:53] VITALS: BP 102/63
--- NOTE | 2019-11-21 13:26 | NUR ---
REPORT GIVEN TO Jefferson CHANCE RN
--- NOTE | 2019-11-21 14:15 | NUR ---
C/S Staple Removal DC Note: Orders received to remove clarice. Clarice removed using sterile technique. Lower abdominal incision approximated, no drainage/redness/inflammation visualized at time of removal. Steri-strips applied. Education provided on incisional care. Patient verbalized understanding and willingness to comply to instructions/teaching provided.
--- NOTE | 2019-11-21 14:23 | NUR ---
Discharge: Discharge instructions given as ordered. Pt encouraged to follow up with [facility] BUSINESS CONSULTANT as instructed. All questions and concerns addressed. Patient verbalized understanding. Medication reconciliation completed and copy given to patient. Patient encouraged to prepare to depart unit.
--- NOTE | 2019-11-21 14:35 | NUR ---
Discharge: Patient taken to vehicle via wheelchair with all personal belongings, accompanied by staff and family member. No distress noted at time of departure, no adverse changes in status since initial assessment.
== END 2019-11-21 14:35 | disposition home or self-care (01) | DRG 540 ==
LOC: LDRP 23:10 → OBSVTOIN 11-19 07:51 → LDRP 11-19 07:52
PROVIDERS: ADMIT Specialist; ATTEND Specialist
PROC: 10D00Z1 Extraction of Products of Conception, Low, Open Approach (ICD-10-PCS; 2019-11-19)
PROC: 0UL70CZ Occlusion of Bilateral Fallopian Tubes with Extraluminal Device, Open Approach (ICD-10-PCS; principal; 2019-11-19 09:46)
DX: O34.211 Maternal care for low transverse scar from previous cesarean delivery (principal); Z37.0 Single live birth; Z3A.38 38 weeks gestation of pregnancy; Z30.2 Encounter for sterilization; Z91.018 Allergy to other foods
CPT/HCPCS: 36415; 59025; 80053; 80307; 81001; 81002; 82948; 84112; 85025; 85610; 85730; 86592; 86850; 86900; 86901; 94762; 96360; 96361; 96372; 96374; 96375; G0378; J0131; J0171; J0690; J1885; J2250; J2405; J2590

== ENCOUNTER 2021-01-07 06:50 | Emergency (ER) | payer MEDICAID ==
[~2021-01-07] VITALS: Ht 154.9 cm; Wt 72.6 kg
[2021-01-07] MEDS ORDERED: cefTRIAXone SOD 1,000 MG VL IM ONE (07:15)
[2021-01-07] MEDS ORDERED: methylPREDNISolone SOD SUCC 125 MG/2 ML VL IM ONE (07:15)
[2021-01-07] MEDS ORDERED: ACETAMINOPHEN 325 MG TAB PO ONE (07:15)
[2021-01-07 07:21] VITALS: BP 127/78
== END 2021-01-07 08:10 | disposition home or self-care (01) ==
LOC: ER 06:50
DX: J02.9 Acute pharyngitis, unspecified (principal); M79.10 Myalgia, unspecified site; Z79.899 Other long term (current) drug therapy; Z91.018 Allergy to other foods
CPT/HCPCS: 96372; 99284; J0696; J2930

== ENCOUNTER 2021-07-06 23:20 | Emergency (ER) | payer MEDICAID ==
[~2021-07-06] VITALS: Ht 154.9 cm; Wt 68.0 kg
[2021-07-06 23:22] VITALS: BP 123/70
== END 2021-07-07 02:57 | disposition left against medical advice (07) ==
LOC: ER 23:20
DX: R10.30 Lower abdominal pain, unspecified (principal); Z53.21 Procedure and treatment not carried out due to patient leaving prior to being seen by health care provider
CPT/HCPCS: 81025

== ENCOUNTER 2021-07-07 06:12 | Emergency (ER) | payer MEDICAID ==
[~2021-07-07] VITALS: Ht 154.9 cm; Wt 68.0 kg
[2021-07-07 06:14] VITALS: BP 108/72
[2021-07-07 08:10] LABS: Basophils # (auto) 0 10 ^3/uL (0-0.2); Basophils % (auto) 0.3 % (0.0-2.0); Eosinophils # (auto) 0.2 10 ^3/uL (0-0.8); Eosinophils % (auto) 2.5 % (0.0-7.0); Hematocrit 37.4 % (36.0-46.0); Hemoglobin 12.5 g/dL (12.2-16.2); Lymphocytes # (auto) 1.4 10 ^3/uL (0.4-5.4); Lymphocytes % (auto) 20.5 % (10.0-50.0); Mean Corpuscular Hemoglobin 29.7 pg (28.0-32.0); Mean Corpuscular Hgb Conc. 33.5 g/dL (32.0-36.0); Mean Corpuscular Volume 88.7 fL (80.0-100.0); Monocytes # (auto) 0.4 10 ^3/uL (0-1.3); Monocytes % (auto) 6.5 % (0.0-12.0); Neutrophils # (auto) 4.8 10 ^3/uL (1.6-8.6); Neutrophils % (auto) 70.2 % (37.0-80.0); Nucleated Red Blood Cells % 0.1 %; Red Blood Cells 4.21 10^6/uL (4.0-5.20); White Blood Cell 6.8 10^3/uL (4.4-10.8)
[2021-07-07 08:36] LABS: Albumin 3.6 g/dL (3.4-5.0); Calcium 9.5 mg/dL (8.5-10.1); Magnesium 2.2 mg/dL (1.6-2.6); Potassium 4.4 mmol/L (3.5-5.1)
[2021-07-07 08:39] LABS: BUN/Creatinine Ratio 16.9; Bilirubin, Total 0.2 mg/dL (0.2-1.0); Total Protein 7.8 g/dL (6.4-8.2)
[2021-07-07 09:23] LABS: Urine Bacteria FEW /hpf (None Seen); Urine Blood TRACE /uL (Negative); Urine Specific Gravity 1.005 (1.001-1.035); Urine WBC 1 /hpf (0 - 5)
== END 2021-07-07 11:18 | disposition home or self-care (01) ==
LOC: ER 06:12
DX: R10.84 Generalized abdominal pain (principal); R11.0 Nausea; Z79.899 Other long term (current) drug therapy; Z91.018 Allergy to other foods
CPT/HCPCS: 36415; 74176; 80053; 81001; 83690; 83735; 84702; 85025

== ENCOUNTER 2021-12-24 08:16 | Emergency (ER) | payer MEDICAID ==
[~2021-12-24] VITALS: Ht 154.9 cm; Wt 72.6 kg
[2021-12-24] MEDS ORDERED: KETOROLAC TROMETH 60MG/2ML VIAL IM ONE (09:15)
[2021-12-24] MEDS ORDERED: CYCL-837 PO (09:17)
[2021-12-24] MEDS ORDERED: IBUP800T27 PO (09:17)
[2021-12-24] MEDS ORDERED: SULF800T7 PO (09:29)
[2021-12-24 10:49] VITALS: BP 106/51
== END 2021-12-24 11:59 | disposition home or self-care (01) ==
LOC: ER 08:16
DX: S16.1XXA Strain of muscle, fascia and tendon at neck level, initial encounter (principal); N39.0 Urinary tract infection, site not specified; F12.10 Cannabis abuse, uncomplicated; Z91.018 Allergy to other foods; X58.XXXA Exposure to other specified factors, initial encounter; Y93.89 Activity, other specified; Y92.89 Other specified places as the place of occurrence of the external cause; Y99.8 Other external cause status
CPT/HCPCS: 72040; 81002; 81025; 96372; 99283; J1885

== ENCOUNTER 2024-01-17 09:12 | Inpatient (IN) | payer MEDICAID ==
[~2024-01-17] VITALS: Ht 154.9 cm; Wt 79.0 kg
[~2024-01-17 09:12] MED LIST changes: +CYCL-837 PO; +IBUP-1456 PO; +SULF800T23 PO
[2024-01-17 09:43] LABS: Basophils # (auto) 0 10 ^3/uL (0-0.2); Basophils % (auto) 0.2 % (0.0-2.0); Eosinophils # (auto) 0.2 10 ^3/uL (0-0.8); Eosinophils % (auto) 1.5 % (0.0-7.0); Hematocrit 41.8 % (36.0-46.0); Lymphocytes # (auto) 1.6 10 ^3/uL (0.4-5.4); Lymphocytes % (auto) 12.5 % (10.0-50.0); Mean Corpuscular Hemoglobin 29.2 pg (28.0-32.0); Mean Corpuscular Hgb Conc. 33.6 g/dL (32.0-36.0); Mean Corpuscular Volume 86.9 fL (80.0-100.0); Monocytes # (auto) 0.8 10 ^3/uL (0-1.3); Monocytes % (auto) 6.2 % (0.0-12.0); Neutrophils # (auto) 10.4 10 ^3/uL (1.6-8.6); Neutrophils % (auto) 79.6 % (37.0-80.0); Nucleated Red Blood Cells % 0.1 %; Platelet Count (auto) 286 10^3/uL (140-450); Red Blood Cells 4.81 10^6/uL (4.0-5.20); Red Cell Distribution Width 14.3 % (11.8-14.3); White Blood Cell 13.1 10^3/uL (4.4-10.8)
[2024-01-17 09:56] LABS: Chloride 105 mmol/L (98-107); Potassium 4.4 mmol/L (3.5-5.1); Sodium 137 mmol/L (136-145)
[2024-01-17 09:57] LABS: Anion Gap 7 (5-15); Calcium 9.8 mg/dL (8.7-10.4); Carbon Dioxide 25 mmol/L (20-30)
[2024-01-17 10:02] LABS: BUN/Creatinine Ratio 9.5 (10.0-20.0); Blood Urea Nitrogen 16 mg/dL (9-23); Glucose 121 mg/dL (74-106)
[2024-01-17 10:09] LABS: Urine Bacteria FEW /hpf (None Seen); Urine Blood 3+ /uL (Negative); Urine Clarity Clear (Clear); Urine Protein, UAD Negative (Negative); Urine Specific Gravity 1.003 (1.001-1.035); Urine Urobilinogen Normal (Negative); Urine WBC 5 /hpf (0 - 5); Urine pH 5.5 (5.0-9.0)
[2024-01-17 10:10] LABS: Urine Color Light-Yellow (Yellow)
[2024-01-17] MEDS: SODIUM CHLORIDE 0.9% 1,000 ML IV ONE ×2 (11:05→11:07)
[2024-01-17] MEDS: ONDANSETRON HCL 4 MG/2 ML VIAL IV ONE (11:06)
[2024-01-17] MEDS: MORPHINE SULFATE 4 MG/ML SYR/VIAL IV ONE (11:07)
[2024-01-17] MEDS ORDERED: DOCUSATE SOD 100 MG CAP PO PRN (14:45)
[2024-01-17] MEDS ORDERED: ACETAMINOPHEN 325 MG TAB PO PRN (14:45)
[2024-01-17] MEDS ORDERED: NITROGLYCERIN 0.4 MG SL TAB SL PRN (15:15)
[2024-01-17] MEDS ORDERED: MORPHINE SULFATE INJ 2 MG/ml SYRG IV PRN (15:15)
[2024-01-17 20:22] VITALS: PULSE 79; RESP 16; O2SAT 97
[2024-01-17] MEDS: PANTOPRAZOLE 40 MG/10 ML VIAL INJ IV ONE (20:38)
[2024-01-17] MEDS: cefTRIAXone 1GM/50ML D5W 50 ML IV ONE (20:38)
[2024-01-17] MEDS: D5W/SOD CHLO 0.9% 1,000 ML IV SCH (20:39)
[2024-01-17] MEDS: HYDROcodone-ACET 5/325MG TAB PO PRN (20:49)
[2024-01-17] MEDS: ONDANSETRON HCL 4 MG/2 ML VIAL IV PRN (22:37)
[2024-01-18] MEDS: MORPHINE SULFATE INJ 2 MG/ml SYRG IV PRN (02:12)
[2024-01-18] MEDS: ALBUMIN 5% 250 ML IV ONE (02:23)
[2024-01-18 07:19] LABS: Basophils # (auto) 0 10 ^3/uL (0-0.2); Basophils % (auto) 0.3 % (0.0-2.0); Eosinophils # (auto) 0.2 10 ^3/uL (0-0.8); Eosinophils % (auto) 2.8 % (0.0-7.0); Hematocrit 31.9 % (36.0-46.0); Hemoglobin 11.2 g/dL (12.2-16.2); Lymphocytes # (auto) 2.5 10 ^3/uL (0.4-5.4); Lymphocytes % (auto) 30.8 % (10.0-50.0); Mean Corpuscular Hemoglobin 30.6 pg (28.0-32.0); Mean Corpuscular Hgb Conc. 34.9 g/dL (32.0-36.0); Mean Corpuscular Volume 87.5 fL (80.0-100.0); Monocytes # (auto) 0.5 10 ^3/uL (0-1.3); Monocytes % (auto) 6.2 % (0.0-12.0); Neutrophils % (auto) 59.9 % (37.0-80.0); Platelet Count (auto) 292 10^3/uL (140-450); Red Blood Cells 3.65 10^6/uL (4.0-5.20); Red Cell Distribution Width 14.1 % (11.8-14.3); White Blood Cell 8.3 10^3/uL (4.4-10.8)
[2024-01-18 07:42] LABS: Alanine Aminotransferase 23 U/L (7-40); Alkaline Phosphatase 73 U/L (46-116); Anion Gap 7 (5-15); BUN/Creatinine Ratio 9.2 (10.0-20.0); Blood Urea Nitrogen 11 mg/dL (9-23); Calcium 8.7 mg/dL (8.7-10.4); Carbon Dioxide 23 mmol/L (20-30); Chloride 111 mmol/L (98-107); Glucose 103 mg/dL (74-106); Potassium 3.6 mmol/L (3.5-5.1); Sodium 141 mmol/L (136-145)
[2024-01-18 07:43] LABS: Albumin 3.9 g/dL (3.2-4.8); Aspartate Aminotransferase 18 U/L (13-40); Bilirubin, Total 0.6 mg/dL (0.2-1.0); Total Protein 6.2 g/dL (5.7-8.2)
[2024-01-18] MEDS: PANTOPRAZOLE 40 MG/10 ML VIAL INJ IV SCH (08:30)
[2024-01-18] MEDS: cefTRIAXone 1GM/50ML D5W 50 ML IV SCH (09:19)
[2024-01-18 09:42] VITALS: TEMP 98.9
[2024-01-18] MEDS: SODIUM CHLORIDE 0.9% 500 ML IV ONE (13:31)
[2024-01-18 14:13] VITALS: O2SAT 100
[2024-01-18 14:16] LABS: Thyroid Stimulating Hormone 1.15 uIU/mL (0.55-4.78)
[2024-01-18 14:33] LABS: Beta HCG, Quantitative < 0.0 mIU/mL (1.5-4.2)
[2024-01-18] MEDS ORDERED: ERGOCALCIFEROL 50,000 UNIT(1.25MG) CAP PO SCH (15:00)
[2024-01-18 15:25] VITALS: BP 106/68; PULSE 64; RESP 18
== END 2024-01-18 19:30 | disposition left against medical advice (07) | DRG 463 ==
LOC: ER 09:12 → OVERFLOW 15:04
PROVIDERS: ADMIT Internal Medicine Geriatric Medicine; ATTEND Emergency Medicine
DX: N12 Tubulo-interstitial nephritis, not specified as acute or chronic (principal); N17.9 Acute kidney failure, unspecified; I95.9 Hypotension, unspecified; E55.9 Vitamin D deficiency, unspecified; N20.0 Calculus of kidney; E86.0 Dehydration; Z53.29 Procedure and treatment not carried out because of patient's decision for other reasons; F17.200 Nicotine dependence, unspecified, uncomplicated; Z88.8 Allergy status to other drugs, medicaments and biological substances; Z79.899 Other long term (current) drug therapy; Z79.1 Long term (current) use of non-steroidal anti-inflammatories (NSAID); Z91.018 Allergy to other foods
CPT/HCPCS: 36415; 74176; 80048; 80053; 81001; 82306; 82607; 83036; 83690; 84443; 84702; 85025; 96374; 96375; G0378; J2405; J2470

== ENCOUNTER 2024-09-28 14:00 | Outpatient (CLI) | payer MEDICAID ==
[2024-09-28 14:11] LABS: Urine Bacteria None Seen /hpf (None Seen)
[2024-09-28 14:12] LABS: Basophils # (auto) 0 10 ^3/uL (0-0.2); Basophils % (auto) 0.3 % (0.0-2.0); Eosinophils # (auto) 0.2 10 ^3/uL (0-0.8); Hematocrit 37.2 % (36.0-46.0); Hemoglobin 12.4 g/dL (12.2-16.2); Lymphocytes # (auto) 2.8 10 ^3/uL (0.4-5.4); Lymphocytes % (auto) 34.8 % (10.0-50.0); Mean Corpuscular Hemoglobin 27.4 pg (28.0-32.0); Mean Corpuscular Hgb Conc. 33.4 g/dL (32.0-36.0); Mean Corpuscular Volume 82.2 fL (80.0-100.0); Monocytes # (auto) 0.4 10 ^3/uL (0-1.3); Neutrophils # (auto) 4.6 10 ^3/uL (1.6-8.6); Neutrophils % (auto) 56.9 % (37.0-80.0); Platelet Count (auto) 374 10^3/uL (140-450); Red Blood Cells 4.53 10^6/uL (4.0-5.20); Red Cell Distribution Width 14.3 % (11.8-14.3); White Blood Cell 8.2 10^3/uL (4.4-10.8)
[2024-09-28 14:28] LABS: INR 0.97 (0.9-1.15); Partial Thromboplastin Time 28.6 SEC (24.5-34.5); Prothrombin Time 10.3 sec (9.3-11.8)
[2024-09-28 14:34] LABS: Alanine Aminotransferase 20 U/L (7-40); Albumin 4.6 g/dL (3.2-4.8); Alkaline Phosphatase 83 U/L (46-116); Anion Gap 5 (5-15); Aspartate Aminotransferase 15 U/L (13-40); BUN/Creatinine Ratio 10.5 (10.0-20.0); Bilirubin, Total 0.4 mg/dL (0.2-1.0); Blood Urea Nitrogen 6 mg/dL (9-23); Calcium 9.6 mg/dL (8.7-10.4); Carbon Dioxide 28 mmol/L (20-31); Chloride 107 mmol/L (98-107); Glucose 93 mg/dL (74-106); Potassium 4.6 mmol/L (3.5-5.1); Sodium 140 mmol/L (136-145); Total Protein 7.5 g/dL (5.7-8.2)
[2024-09-28 16:10] LABS: Urine Blood 3+ /uL (Negative); Urine Clarity Turbid (Clear); Urine Color Colorless (Yellow); Urine Protein, UAD TRACE (Negative); Urine Specific Gravity 1.008 (1.001-1.035); Urine Squamous Epithelial Cell FEW /hpf (<5); Urine Urobilinogen Normal (Negative); Urine WBC 15 /HPF (0-5)
== END 2024-09-28 17:00 | disposition home or self-care (01) ==
LOC: LAB 14:00
PROVIDERS: ATTEND Orthopaedic Surgery Adult Reconstructive Orthopaedic Surgery
DX: Z01.812 Encounter for preprocedural laboratory examination (principal); R79.1 Abnormal coagulation profile
CPT/HCPCS: 36415; 80053; 81001; 83036; 84702; 85025; 85610; 85730